=== PATIENT | male | born 1995 | race African-American/Black ===

== ENCOUNTER 2025-01-23 09:52 | Emergency (ER) | payer OTHER, SELFPAY ==
[2025-01-23 10:15] VITALS: BP 143/91; PULSE 60; RESP 16; TEMP 36.6; O2SAT 100; BMI 26.2
--- NOTE | 2025-01-23 11:41 | DI.RAD.S_ITS ---
PROCEDURE: XR FINGER LT MIN 2V INDICATIONS: Laceration TECHNIQUE: AP hand, 2 views of the 1st finger(s) acquired. COMPARISON: None. FINDINGS: Bones: No fractures or dislocations. No suspicious bony lesions. Soft tissues: No suspicious soft tissue calcifications. IMPRESSION: No acute bony abnormality. Dictated by: Adonis Benjamin M.D. on 01/23/2025 at 12:14 Approved by: Adonis Benjamin M.D. on 01/23/2025 at 12:14
--- NOTE | 2025-01-23 11:42 | ED_ITS ---
<Statement entered by Thor Hanson, - 01/23/25 18:12> Co-sign statement: I was available for consultation during this patient's emergency department visit. This chart is being signed by myself for administrative purposes only. I do not have direct contact with this patient during this visit. They were seen independently by the APC. HPI - Wound/Laceration General Chief Complaint: Wound/Laceration Stated Complaint: Sliced LT thumb Time Seen by Provider: 01/23/25 09:55 Source: patient Mode of arrival: Ambulatory History of Present Illness HPI narrative: 29-year-old male with no reported past medical history presents to the ED with a left thumb injury sustained just prior to arrival. Patient states he accidentally injured his left thumb when using a box toe maker. Last tetanus is unknown. Patient endorses pain at the site of the injury. Bleeding controlled with pressure. No numbness, tingling, weakness. Full range of motion. Related Data Allergies Allergy/AdvReac Type Severity Reaction Status Date / Time No Known Drug Allergies Allergy Verified 01/23/25 10:15 Review of Systems Constitutional Constitutional: Denies chills, Denies fatigue, Denies fever(s), Denies frequent falls, Denies lethargy and Denies weakness Eyes Eyes: Denies change in vision, Denies eye discharge, Denies irritation and Denies loss of vision ENT Ears, Nose, Mouth, and Throat: Denies change in voice, Denies dizziness, Denies neck pain, Denies sore throat and Denies throat swelling Cardiovascular Cardiovascular: Denies chest pain, Denies irregular heart rhythm, Denies lightheadedness, Denies palpitations, Denies dyspnea, Denies dyspnea on exertion and Denies orthopnea Respiratory Respiratory: Denies cough, Denies dyspnea, Denies dyspnea on exertion and Denies wheezing Gastrointestinal Gastrointestinal: Denies abdominal pain, Denies change in bowel habits, Denies diarrhea, Denies nausea and Denies vomiting Musculoskeletal Musculoskeletal: Denies neck pain and Denies numbness Integumentary/Breasts Skin/Breast: Denies pruritus, Denies erythema, Denies rash and Reports wounds (Left thumb laceration) Neurologic Neurologic: Denies behavioral changes, Denies confusion, Denies dizziness, Denies frequent falls, Denies loss of vision, Denies numbness and Denies weakness Psychiatric Psychiatric: Denies anxiety, Denies behavioral changes, Denies confusion, Denies depression, Denies homicidal ideation and Denies suicidal ideation Endocrine Endocrine: Denies fatigue, Denies flushing and Denies palpitations Hematologic/Lymphatic Hematologic/Lymphatic: Denies easy bruising Allergic/Immunologic Allergic/Immunologic: Denies urticaria, Denies throat swelling and Denies wheezing Patient History tobacco type: vaping Exam Narrative Exam Narrative: Const General:?cooperative, healthy appearing and comfortable [facility] Head:?normal to inspection Ears:?hearing grossly normal bilaterally Nose:?external nose normal Face and sinus:?normal facial exam and sinuses nontender Mouth:?oral mucosae normal Throat:?posterior oropharynx normal Eyes General:?appearance normal, both eyes and all related structures Neck Neck:?normal visual inspection and no lymphadenopathy noted Resp Effort & Inspection:?normal respiratory effort Auscultation:?clear to auscultation bilaterally Cardio Rate:?regular rate Rhythm:?regular rhythm Integumentary There appears to be a 3 cm flap laceration to the palmar aspect of the left thumb. Bleeding is controlled with pressure. Full range of motion. Strength and sensation intact. Similarly intact. Neuro General:?patient alert, patient awake and patient oriented x3 Initial Vital Signs Initial Vital Signs: Vital Signs Temperature 97.9 F 01/23/25 10:15 Pulse Rate 60 01/23/25 10:15 Respiratory Rate 16 01/23/25 10:15 Blood Pressure 143/91 H 01/23/25 10:15 Pulse Oximetry 100 01/23/25 10:15 Oxygen Delivery Method Room Air 01/23/25 10:15 Procedures Laceration Repair Laceration 1: Site: hand Side (If applicable): left Size (cm): 3 Description: flap Depth: simple, single layer Local Anesthetic: lidocaine 2% and with epi Amount of anesthesia used (mL): 1 Pre-repair: wound explored, irrigated extensively and deep structures intact Skin layer closed with: nylon Skin layer suture size: 5-0 Number of sutures: 4 Technique: simple, interrupted Course Orders Ordered: ED Orders 01/23/25 11:41 XR finger LT min 2V Stat Discontinued Medications Diphtheria/Tetanus/Acell Pertussis (Tet,Diph,Pertuss(Acell),Vac/Pf 0.5 Ml Syringe) 0.5 ml IM .ONCE ONE Stop: 01/23/25 11:41 Last Admin: 01/23/25 12:17 Dose: 0.5 ml Documented By: ALEJANDRO Lidocaine HCl (Lidocaine 2% Inj Sdv 5ml) 2 ml INJ NOW ONE Stop: 01/23/25 11:49 Last Admin: 01/23/25 12:16 Dose: 2 ml Documented By: ALEJANDRO Vital Signs Vital signs: Vital Signs - 8 hr 01/23/25 10:15 01/23/25 13:02 Temperature 97.9 F 98.1 F Pulse Rate 60 60 Respiratory Rate 16 18 Blood Pressure 143/91 H 151/77 H Pulse Oximetry 100 100 Oxygen Delivery Method Room Air Room Air MDM - Wound/Laceration MDM Narrative Medical decision making narrative: 29-year-old male with no reported past medical history presents to the ED with a left thumb injury sustained just prior to arrival. Concern for laceration versus fracture/dislocation versus other. Will obtain x-ray. Will repair laceration. Tetanus updated. X-ray without acute findings. Laceration repaired with 4 sutures. Wound care, signs of infection, suture removal discussed with patient. ED return precautions discussed with patient. Patient verbalized understanding. Medical records reviewed: Yes Discharge Plan Departure Patient Disposition: Home Clinical Impression: Laceration Instructions: DI for Laceration Repair Activity Restrictions/Additional Instructions: You were evaluated in the emergency department today for a finger injury. Your x-ray was normal. The laceration was repaired with 4 sutures. The sutures will need to be removed in 7-10 days. You may return to the ED, go to a walk-in clinic, go to your PCP's office for suture removal. Your tetanus was updated today which is valid for the next 10 years. Please watch for signs of infection such as worsening pain, swelling, redness, warmth, discharge. Return to the ED if you note any signs of infection. Please keep the wound clean and dry for the 1st 24 hours, following which you may wash gently with soap and water. Please dry completely before re-dressing. Please keep your dressings dry and the finger dressed until the sutures are removed. Stand Alone Forms: Patient Portal/API
[2025-01-23] MEDS: LIDOCAINE 2% INJ SDV 5ML 2 ML INJ (12:16)
[2025-01-23] MEDS: TET,DIPH,PERTUSS(ACELL),VAC/PF 0.5 ML SYRINGE IM (12:17)
[2025-01-23 13:02] VITALS: BP 151/77; PULSE 60; RESP 18; TEMP 36.7; O2SAT 100
== END 2025-01-23 13:04 | disposition home or self-care (01) ==
PROVIDERS: Emergency Provider Student in an Organized Health Care Education/Training Program
DX: S61.012A Laceration without foreign body of left thumb without damage to nail, initial encounter (principal); W26.9XXA Contact with unspecified sharp object(s), initial encounter; Z23 Encounter for immunization
CPT/HCPCS: 12002; 73140; 90471; 99283; 99284; 90715